=== PATIENT | male | born 1960 | race Caucasian/White ===

== ENCOUNTER 2022-09-30 08:00 | Outpatient (RCR) | payer OTHER, SELFPAY ==
--- NOTE | 2022-08-21 11:21 | PTOPEVAL1 ---
Assessment and note entered by Desiree Espinal, PT Evaluation Information Assessment Status Evaluation Diagnosis Lumbar arthrodesis, low back pain Onset 3 months ago Subjective Information Pt reports 2 surgeries, states has pins and screws , is not sure if was a fusion. Pt reports was doing fine until a couple months ago. States woke up to get ready for work in intense pain. Got to work and was worse. Went to Emergency Room, was told to alternate heat and ice and was provided cyclobenzaprene for muslce relaxer. Pain has been justino improving. Is no longer constant but will come and go. Pt reports pain will go down legs sometimes LLE. Knee cap wlil go numb at times. Walking improves the pain Reported Pain Level Pain Score 4: Self Report Assessment PT Clinical Summary Pt presents w/ c/o low back pain that flared up a few months ago without traumatic incident. Pt has history of back surgery, likely a fusion of L4-5 but patient is unsure of this. Posture abnormality and testing suggestive of left leg length longer than right leading to compensatory curvature and nerve pinch at L3 level. Pt demo's decreased core strength and gluteal strength as well as tight hip flexors. Pt will benefit from physical therapy to address deficits, educate pt on DME to correct for alignment and improve pain to return to PLOF. Plan of Care Interventions Electrical Stimulation,Hot Pack/Cold Pack,Manual Therapy,Neuro Re-education,Patient/Caregiver Educati,Therapeutic Activities,Therapeutic Exercise PT Services Indicated Yes Treatment Frequency and 1-2x weekly x 6 weeks Duration These treatments will address the objective and functional deficits as defined above. The patient will be advanced safely and appropriately in order for the patient to progress towards his/her prior level of function. Additional exercises will be introduced and as well as a comprehensive home exercise program upon discharge, if needed, ?to ensure carryover of functional gains achieved in the clinic. This treatment plan has been reviewed and agreement upon by the patient.
--- NOTE | 2022-08-21 11:21 | OPREHPOC ---
Outpatient Therapy Plan of Care This is a Multidisciplinary Plan of Care that may contain components documented by all disciplines (PT, OT, and ST.) PT Problem 1 PT Problem #1 Knowledge Deficit PT Goal 1 Goal Pt will be independent in HEP Target Visit 12 PT Goal 2 Goal Pt will verbalize understanding of diagnosis and prognosis Target Visit 8 PT Problem 2 PT Problem #2 Pain PT Goal 1 Goal Pt will report highest pain at 3/10 and achieving lowest pain at 0/10 Target Visit 8 PT Goal 2 Goal Pt will report resolution of pain Target Visit 12 PT Problem 3 PT Problem #3 Impaired Strength PT Goal 1 Goal Pt will demo glute strength and core strength of 4 /5 or greater PT Goal 2 Goal Pt will demo gluteal strength at 4+/5 bilat
--- NOTE | 2022-09-30 08:32 | PTOPDC ---
Assessment and note entered by Desiree Espinal, PT Assessment Status Discharge Diagnosis Lumbar arthrodesis, low back pain Onset 3 months ago Subjective Information Pt reports leg pain and numbness has resolved Has been able to work his 12 hour shifts without issue Has been able to carry things at work without issue No longer taking muscle relaxer Pt reports feels about 100 percent improved Reported Pain Level Pain Score 0: Self Report Assessment PT Clinical Summary Pt has attended therapy consistently. States he has been performing his exercises and has no questions on this. Demo's continued weakness overall however he has been able to return to all functional activities without pain and reports resolution of back and leg pain. Pt was educated on final home exercise program, and when to return to therapy. Thus patient is being discharged for completing his goals.
== END 2022-09-30 09:17 | disposition home or self-care (01) ==
LOC: ANHHIPT 08:00
PROVIDERS: PCP Family Medicine; Visit Provider Family Medicine
DX: M54.50 Low back pain, unspecified (principal); Z98.1 Arthrodesis status
CPT/HCPCS: 97110; 97140; 97162

== ENCOUNTER 2024-05-08 08:30 | Outpatient (RCR) | payer OTHER, SELFPAY ==
--- NOTE | 2024-03-09 17:04 | PTOPEVAL1 ---
Assessment and note entered by Magdalena Larson, PT Evaluation Information Assessment Status Evaluation Diagnosis M25.511 ICD-10 Condition Codes (PT) Pain in right shoulder M25.511,Pain in right elbow M25.521,Weakness R53.1 Onset approx a month ago Subjective Information Pt recalls getting out of a lowered sports car and stepped on wet leaves, he felt like he was falling, grabbed the steering wheel to try and prevent a fall, experiencing pain in the shoulder, back of the shoulder; through the whole arm and last 3 fingers are numb. Takes gabapentin every night and Ibuprofen as needed, icing when it is worst. moving tables, pulling and pushing increases the pain. hard time sleeping or wakes up due to pain when laying on the R arm, Assessment PT Clinical Summary Pt presents to therapy with R shoulder pain that radiates to the whole arm and fingertips. Demos a positive Bakody's sign indicating affectation of the C4-C6 nerve, paresthesia to fingers with abduction of arm, demos decreased ROM to cervical spine secondary to muscle guarding and tightness, weakness and increasing discomfort with activities . Pt will benefit from skilled PT intervention to gain knowledge, improve mobility, functional strength and endurance, reduce pain and discomfort and improve overall QOL. Plan of Care Interventions Electrical Stimulation,Hot Pack/Cold Pack,Manual Therapy,Neuro Re-education,Patient/Caregiver Education,Therapeutic Activities,Therapeutic Exercise,Ultrasound,Other Other Interventions IASTM, Taping PT Services Indicated Yes Treatment Frequency and 1-2x/wk x 12 visits Duration These treatments will address the objective and functional deficits as defined above. The patient will be advanced safely and appropriately in order for the patient to progress towards his/her prior level of function. Additional exercises will be introduced and as well as a comprehensive home exercise program upon discharge, if needed, ?to ensure carryover of functional gains achieved in the clinic. This treatment plan has been reviewed and agreement upon by the patient.
--- NOTE | 2024-03-09 17:04 | OPREHPOC ---
Outpatient Therapy Plan of Care This is a Multidisciplinary Plan of Care that may contain components documented by all disciplines (PT, OT, and ST.) PT Problem 1 PT Problem #1 Knowledge Deficit PT Goal 1 Goal / Goal Update Pt will demo good understanding of diagnosis, prognosis and POC. Pt will demo HEPs indep Target Visit 10 PT Problem 2 PT Problem #2 Pain PT Goal 1 Goal / Goal Update Pt will report reduction in pain to 3-4/10 at worst and with neck movements to all planes. Pt will report complete resolution of pain and paresthesia levels to 0/10 while performing daily tasks, prolonged positions with arms at the side ( sleeping, lounging, walking longer distances). Target Visit 12 PT Problem 3 PT Problem #3 Impaired Range of Motion PT Goal 1 Goal / Goal Update Pt will demo WNL of cervical movements without pain and paresthesia going down to R UE. Target Visit 12 PT Problem 4 PT Problem #4 Impaired Strength PT Goal 1 Goal / Goal Update Pt will demo 4/5 strength of RUE to all tested planes Target Visit 12
--- NOTE | 2024-03-22 13:47 | PCPTNOTE ---
Patient called & cancelled scheduled appointment 03/20/2024 due to weather conditions
--- NOTE | 2024-05-08 11:32 | PTOPDC ---
Assessment and note entered by Magdalena Larson, PT Discharge Information Assessment Status Discharge Diagnosis M25.511 ICD-10 Condition Codes (PT) Pain in right shoulder M25.511,Pain in right elbow M25.521,Weakness R53.1 Onset approx a month ago Subjective Information Pt reports feeling better, and no pain, states that he feels some tingling sensation going to the fingers randomly but not as frequent and not as bad as it used to. States therapy has helped him with the pain, the exercises has helped regain movement and now he is ready to be DC'd. Reported Pain Level Pain Score 0: Self Report Assessment PT Clinical Summary Pt received a total of 8 treatment sessions and showed good improvement with pain levels and gains in flexibility and strength of the affected shoulder. Reports gained knowledge on body awareness and is compliant with HEPs and applied proper body mechanics with lifting and overhead reaching to avoid re-injuries. Pt has also met all established goals, skilled PT discontinued at this time. Plan of Care PT Services Indicated No
== END 2024-05-08 12:46 | disposition home or self-care (01) ==
LOC: ANHHIPT 08:30
PROVIDERS: PCP Nurse Practitioner Family; Visit Provider Nurse Practitioner Family
DX: M25.511 Pain in right shoulder (principal)
CPT/HCPCS: 97014; 97035; 97110; 97112; 97140; 97161; 97750; G0283